=== PATIENT | male | born 2000 | race Caucasian/White ===

== ENCOUNTER 2018-01-23 11:24 | Emergency (ER) | payer OTHER, BC ==
[2018-01-23] MEDS ORDERED: DIPH/PERTUSS(ACELL)/TETANUS VAC/PF 0.5 ML SYR (>=10YO) IM ONE (12:11)
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
--- NOTE | 2018-01-23 12:43 | RADIOLOGY REPORT (SQ) ---
EXAM DESCRIPTION: CHEST 2 VIEWS COMPLETED DATE/TIME: 01/23/2018 12:35 pm REASON FOR STUDY: left chest pain COMPARISON: None. EXAM PARAMETERS: NUMBER OF VIEWS: two views TECHNIQUE: Digital Frontal and Lateral radiographic views of the chest acquired. RADIATION DOSE: NA LIMITATIONS: none FINDINGS: LUNGS AND PLEURA: No opacities, masses or pneumothorax. No pleural effusion. MEDIASTINUM AND HILAR STRUCTURES: No masses or contour abnormalities. HEART AND VASCULAR STRUCTURES: Heart normal size. No evidence for failure. BONES: No acute findings. HARDWARE: None in the chest. OTHER: No other significant finding. IMPRESSION: NO ACUTE RADIOGRAPHIC FINDING IN THE CHEST. TECHNICAL DOCUMENTATION: JOB ID: [id number] [employer]- All Rights Reserved Reading location - IP/workstation name: [email or web address]
[2018-01-23 13:26] VITALS: BP 130/78
== END 2018-01-23 13:17 | disposition home or self-care (01) ==
LOC: ER 11:24
DX: T22.212A Burn of second degree of left forearm, initial encounter (principal); T22.112A Burn of first degree of left forearm, initial encounter; T23.201A Burn of second degree of right hand, unspecified site, initial encounter; T23.102A Burn of first degree of left hand, unspecified site, initial encounter; R07.89 Other chest pain; V43.52XA Car driver injured in collision with other type car in traffic accident, initial encounter; W22.11XA Striking against or struck by driver side automobile airbag, initial encounter; Z23 Encounter for immunization
CPT/HCPCS: 71046; 90471; 90715; 99284